=== PATIENT | female | born 1985 | race Caucasian/White ===

== ENCOUNTER 2016-10-29 19:30 | Emergency (ER) | payer OTHER ==
[~2016-10-29] VITALS: Ht 165.1 cm; Wt 108.9 kg
[2016-10-29 19:42] VITALS: BP 122/87
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
[2016-10-29] MEDS ORDERED: CYCLOBENZAPRINE5 M2 PO (20:38)
[2016-10-29] MEDS ORDERED: MOBIC15 M1 PO (20:38)
== END 2016-10-29 20:46 ==
LOC: ERH 19:30
DX: S16.1XXA Strain of muscle, fascia and tendon at neck level, initial encounter (principal); V43.52XA Car driver injured in collision with other type car in traffic accident, initial encounter